=== PATIENT | male | born 1975 | race African-American/Black ===

== ENCOUNTER 2016-09-02 11:39 | Observation (INO) | payer SELFPAY ==
[~2016-09-02] VITALS: Ht 177.8 cm; Wt 90.0 kg
[2016-09-02 11:50] VITALS: BP 146/76; PULSE 97; RESP 16; TEMP 98.2; O2SAT 98
--- NOTE | 2016-09-02 12:09 | PD ---
HPI Chief Complaint: GI Complaint Time Seen by Provider: 12:08 Travel History International Travel<30 days: No Contact w/Intl Traveler<30days: No Traveled to known affect area: No History of Present Illness HPI 40 YO male presents to the ED for evaluation of Allergies-Medications (Allergen,Severity, Reaction): Coded Allergies: No Known Allergies (Unverified , 09/02/16) Reported Meds & Prescriptions Reported Meds & Active Scripts Active No Active Prescriptions or Reported Medications Data Data Last Documented VS Vital Signs Date Time Temp Pulse Resp B/P Pulse Ox O2 Delivery O2 Flow Rate FiO2 09/02/16 12:53 73 15 119/73 100 Room Air 09/02/16 11:50 98.2 MDM Scripts No Active Prescriptions or Reported Meds Marivel Castillo Sep 02, 2016 12:09
[2016-09-02 12:53] VITALS: BP 119/73; PULSE 73; RESP 15; O2SAT 100
[2016-09-02] MEDS ORDERED: SODIUM CHLOR 0.9% 1000 ML INJ 1,000 ML IV SCH (13:18)
--- NOTE | 2016-09-02 13:29 | PD ---
HPI Chief Complaint: GI Complaint Time Seen by Provider: 13:18 Travel History International Travel<30 days: No Contact w/Intl Traveler<30days: No Traveled to known affect area: No History of Present Illness HPI 40-year-old male with history of alcohol use, presents to the ER today for 1 day history of black stools, blood in the stools when he went to the bathroom today. He reports lightheadedness. He denies any chest pains, shortness of breath, vomiting, or any other symptoms. Modifying Factors: None Associated Signs & Symptoms: Blood in the stools, black stools Risk Factors: None PFSH Past Medical History Medical History: Denies Significant Hx Diminished Hearing: No Influenza Vaccination: Yes Past Surgical History Surgical History: No Previous Surgery Social History Alcohol Use: Yes (daily 2 liquor drinks) Tobacco Use: No Substance Use: No Allergies-Medications (Allergen,Severity, Reaction): Coded Allergies: No Known Allergies (Unverified , 09/02/16) Reported Meds & Prescriptions Reported Meds & Active Scripts Active No Active Prescriptions or Reported Medications Review of Systems Except as stated in HPI: all other systems reviewed are Neg Physical Exam Narrative GENERAL: Well-developed young -[place] male patient currently in mild distress. Awake and oriented 3. SKIN: Focused skin assessment warm/dry. HEAD: Atraumatic. Normocephalic. EYES: Pupils equal and round. No scleral icterus. No injection or drainage. ENT: No nasal bleeding or discharge. Mucous membranes pink and moist. NECK: Trachea midline. No JVD. CARDIOVASCULAR: Regular rate and rhythm. No murmur appreciated. RESPIRATORY: No accessory muscle use. Clear to auscultation. Breath sounds equal bilaterally. GASTROINTESTINAL: Abdomen soft, non-tender, nondistended. Hepatic and splenic margins not palpable. RECTAL EXAM: No masses or tenderness, stool is dark, Hemoccult-positive. MUSCULOSKELETAL: No obvious deformities. No clubbing. No cyanosis. No edema. NEUROLOGICAL: Awake and alert. No obvious cranial nerve deficits. Motor grossly within normal limits. Normal speech. PSYCHIATRIC: Appropriate mood and affect; insight and judgment normal. Data Data Last Documented VS Vital Signs Date Time Temp Pulse Resp B/P Pulse Ox O2 Delivery O2 Flow Rate FiO2 09/02/16 14:19 100 Room Air 09/02/16 12:53 73 15 119/73 09/02/16 11:50 98.2 Orders Complete Blood Count With Diff (09/02/16 13:18) Comprehensive Metabolic Panel (09/02/16 13:18) Lipase (09/02/16 13:18) Prothrombin Time / Inr (Pt) (09/02/16 13:18) Act Partial Throm Time (Ptt) (09/02/16 13:18) Type And Screen (09/02/16 13:18) Ecg Monitoring (09/02/16 13:18) Iv Access Insert/Monitor (09/02/16 13:18) Oximetry (09/02/16 13:18) Pantoprazole Inj (Protonix Inj) (09/02/16 13:30) Sodium Chlor 0.9% 1000 Ml Inj (Ns 1000 M (09/02/16 13:18) Sodium Chloride 0.9% Flush (Ns Flush) (09/02/16 13:30) Admit Order (Ed Use Only) (09/02/16 14:18) Labs Laboratory Tests Test 09/02/16 13:27 White Blood Count 10.3 TH/MM3 Red Blood Count 4.32 MIL/MM3 Hemoglobin 14.0 GM/DL Hematocrit 40.3 % Mean Corpuscular Volume 93.5 FL Mean Corpuscular Hemoglobin 32.3 PG Mean Corpuscular Hemoglobin 34.6 % Concent Red Cell Distribution Width 13.4 % Platelet Count 241 TH/MM3 Mean Platelet Volume 8.2 FL Neutrophils (%) (Auto) 79.5 % Lymphocytes (%) (Auto) 14.2 % Monocytes (%) (Auto) 5.8 % Eosinophils (%) (Auto) 0.2 % Basophils (%) (Auto) 0.3 % Neutrophils # (Auto) 8.2 TH/MM3 Lymphocytes # (Auto) 1.5 TH/MM3 Monocytes # (Auto) 0.6 TH/MM3 Eosinophils # (Auto) 0.0 TH/MM3 Basophils # (Auto) 0.0 TH/MM3 CBC Comment DIFF FINAL Differential Comment Prothrombin Time 11.5 SEC Prothromb Time International 1.0 RATIO Ratio Activated Partial 27.3 SEC Thromboplast Time Sodium Level 138 MEQ/L Potassium Level 4.3 MEQ/L Chloride Level 104 MEQ/L Carbon Dioxide Level 27.9 MEQ/L Anion Gap 6 MEQ/L Blood Urea Nitrogen 25 MG/DL Creatinine 1.19 MG/DL Estimat Glomerular Filtration 82 ML/MIN Rate Random Glucose 84 MG/DL Calcium Level 8.9 MG/DL Total Bilirubin 0.4 MG/DL Aspartate Amino Transf 32 U/L (AST/SGOT) Alanine Aminotransferase 32 U/L (ALT/SGPT) Alkaline Phosphatase 83 U/L Total Protein 7.4 GM/DL Albumin 3.7 GM/DL Lipase 129 U/L Blood Type A POSITIVE Antibody Screen NEGATIVE Blood Bank Comment MDM Medical Decision Making Medical Screen Exam Complete: Yes Emergency Medical Condition: Yes Medical Record Reviewed: Yes Interpretation(s) Laboratory Tests Test 09/02/16 13:27 Red Blood Count 4.32 MIL/MM3 (4.50-5.90) Neutrophils (%) (Auto) 79.5 % (16.0-70.0) Neutrophils # (Auto) 8.2 TH/MM3 (1.8-7.7) Blood Urea Nitrogen 25 MG/DL (7-18) Estimat Glomerular Filtration 82 ML/MIN (>89) Rate Differential Diagnosis GI bleeding and versus hemorrhoids versus anemia Narrative Course Lab work shows a stable H&H. Rectal exam shows significant melena. Patient was given IV fluids, Protonix, and case was discussed with family practice resident service for admission for further treatment. HemaPrompt Point of Care Internal Pos. & Neg. Controls: Passed Fecal Specimen Occult Blood: Positive Diagnosis Primary Impression: GI bleed Admitting Information Admitting Physician Requests: Admit Scripts No Active Prescriptions or Reported Meds Nereida Mueller MD Sep 02, 2016 13:29
[2016-09-02] MEDS ORDERED: PANTOPRAZOLE SODIUM 40 MG VIAL IVP ONE (13:30)
[2016-09-02] MEDS ORDERED: SODIUM CHLORIDE 0.9% FLUSH 10 ML FLUSH IVF PRN (13:30)
[2016-09-02 13:44] LABS: AUTOMATED NEUTROPHIL # 8.2 TH/MM3 (1.8-7.7); BASOPHIL % 0.3 % (0.0-2.0); EOSINOPHIL % 0.2 % (0.0-4.0); HEMATOCRIT 40.3 % (39.0-51.0); HEMO FLAGS DIFF FINAL; LYMPH % 14.2 % (9.0-44.0); LYMPHOCYTE # 1.5 TH/MM3 (1.0-4.8); MEAN CELL VOLUME 93.5 FL (80.0-100.0); MEAN CORPUSCULAR HEMOGLOBIN 32.3 PG (27.0-34.0); MEAN CORPUSCULAR HGB CONC 34.6 % (32.0-36.0); MONO % 5.8 % (0.0-8.0); NEUT % 79.5 % (16.0-70.0); PLATELET COUNT 241 TH/MM3 (150-450); RED BLOOD COUNT 4.32 MIL/MM3 (4.50-5.90); RED CELL DISTRIBUTION WIDTH 13.4 % (11.6-17.2); WHITE BLOOD COUNT 10.3 TH/MM3 (4.0-11.0)
[2016-09-02 13:54] LABS: APTT (PATIENT) 27.3 SEC (24.3-30.1); PROTHROMBIN TIME - PATIENT 11.5 SEC (9.8-11.6)
[2016-09-02 13:58] LABS: ALT (GPT) 32 U/L (12-78); ANION GAP 6 MEQ/L (5-15); AST (GOT) 32 U/L (15-37); BICARBONATE 27.9 MEQ/L (21.0-32.0); BLOOD UREA NITROGEN 25 MG/DL (7-18); CHLORIDE 104 MEQ/L (98-107); GLOMERULAR FILTRATION RATE 82 ML/MIN (>89); POTASSIUM 4.3 MEQ/L (3.5-5.1); SODIUM (NA) 138 MEQ/L (136-145)
[2016-09-02 14:01] LABS: ALKALINE PHOSPHATASE 83 U/L (45-117); TOTAL BILIRUBIN ADULT 0.4 MG/DL (0.2-1.0)
[2016-09-02 14:19] VITALS: O2SAT 100
--- NOTE | 2016-09-02 14:43 | HHI.HP ---
[facility] Service Family Medicine Primary Care Physician No Primary Care Physician Admission Diagnosis GI bleed Diagnoses: International Travel<30 Days: No Contact w/Intl Traveler<30days: No Known Affected Area: No History of Present Illness 40 year old male presenting with possible upper GI bleed. He reports with two episodes today of black stools. He shows us a picture showing significant black liquid stools filling the toilet bowl. He uses Goody Powder occasionally and also drinks two glasses of liquor per day. He has epigastric discomfort starting today. He has some lightheadedness with standing. No chest pain, shortness of breath, or vomiting. He does have some nausea. (Quentin Hernandez MD R2) Review of Systems Constitutional: COMPLAINS OF: Dizziness, DENIES: Fatigue, Chills Endocrine: DENIES: Polydipsia, Polyuria Eyes: DENIES: Blurred vision, Diplopia Ears, nose, mouth, throat: DENIES: Throat pain, Running Nose Respiratory: DENIES: Cough, Shortness of breath Cardiovascular: DENIES: Chest pain, Dyspnea on Exertion, Lower Extremity Edema , Orthopnea Gastrointestinal: COMPLAINS OF: Black stools, Bloody stools, DENIES: Abdominal pain, Constipation, Diarrhea, Nausea Genitourinary: DENIES: Urgency, Dysuria Musculoskeletal: DENIES: Joint pain, Muscle aches, Joint Swelling, Neck pain Integumentary: DENIES: Rash Hematologic/lymphatic: DENIES: Bruising Neurologic: DENIES: Headache Psychiatric: DENIES: Anxiety, Confusion, Depression (Quentin Hernandez MD R2) Past Family Social History Past Medical History None Past Surgical History None Reported Medications Reported Meds & Active Scripts Active No Active Prescriptions or Reported Medications (Quentin Hernandez MD R2) Allergies: Coded Allergies: No Known Allergies (Unverified , 09/02/16) Active Ordered Medications Inpatient Medications Ondansetron HCl (Zofran Inj) 4 mg Q6H PRN IV NAUSEA OR VOMITING; Start at 15:00 Pantoprazole Sodium (Protonix Inj) 40 mg BID IV ; Start 09/02/16 at 21:00 Senna/Docusate Sodium 1 tab 1 tab BID PRN PO CONSTIPATION; Start 09/02/16 at 15 :00 Sodium Chloride (NS 1000 ml Inj) 1,000 ml @ 125 mls/hr Q8H IV Last administered on 09/02/16t 15:03; Start 09/02/16 at 14:25 Sodium Chloride (NS Flush) 2 ml UNSCH PRN IVF FLUSH AFTER USING IV ACCESS; Start 09/02/16 at 13:30 Family History Mom: diabetes, hypertension Father: uncertain Siblings: healthy Social History Smoked a pack per week for 30 years, quit a month ago Drinks "2 cups" of liquor daily Used THC in the past, no history of IV drug use Lives with brother Not working (David,Quentin Michaels MD R2) Physical Exam Vital Signs Vital Signs Date Time Temp Pulse Resp B/P Pulse Ox O2 Delivery O2 Flow Rate FiO2 09/02/16 14:19 100 Room Air 09/02/16 12:53 73 15 119/73 100 Room Air 09/02/16 11:50 98.2 97 16 146/76 98 Physical Exam GENERAL: No distress, resting in bed, comfortable SKIN: No rashes, ecchymoses or lesions. HEAD: Atraumatic. Normocephalic. No temporal or scalp tenderness. EYES: Pupils equal round and reactive. Extraocular motions intact. No scleral icterus. No pale conjunctiva. No injection or drainage. ENT: Nose without bleeding, purulent drainage or septal hematoma. Throat without erythema, tonsillar hypertrophy or exudate. Uvula midline. Airway patent. NECK: Trachea midline. No JVD or lymphadenopathy. Supple, nontender, no meningeal signs. CARDIOVASCULAR: Regular rate and rhythm without murmurs, gallops, or rubs. RESPIRATORY: Clear to auscultation. Breath sounds equal bilaterally. No wheezes , rales, or rhonchi. GASTROINTESTINAL: Abdomen soft, non-tender, nondistended. No hepato-splenomegaly , or palpable masses. No guarding. MUSCULOSKELETAL: Extremities without clubbing, cyanosis, or edema. No joint tenderness, effusion, or edema noted. No calf tenderness. Negative Homans sign bilaterally. NEUROLOGICAL: Awake and alert. Cranial nerves II through XII intact. Motor and sensory grossly within normal limits. Five out of 5 muscle strength in all muscle groups. Normal speech. Laboratory Laboratory Tests Test 09/02/16 13:27 White Blood Count 10.3 Red Blood Count 4.32 Hemoglobin 14.0 Hematocrit 40.3 Mean Corpuscular Volume 93.5 Mean Corpuscular Hemoglobin 32.3 Mean Corpuscular Hemoglobin 34.6 Concent Red Cell Distribution Width 13.4 Platelet Count 241 Mean Platelet Volume 8.2 Neutrophils (%) (Auto) 79.5 Lymphocytes (%) (Auto) 14.2 Monocytes (%) (Auto) 5.8 Eosinophils (%) (Auto) 0.2 Basophils (%) (Auto) 0.3 Neutrophils # (Auto) 8.2 Lymphocytes # (Auto) 1.5 Monocytes # (Auto) 0.6 Eosinophils # (Auto) 0.0 Basophils # (Auto) 0.0 CBC Comment DIFF FINAL Differential Comment Prothrombin Time 11.5 Prothromb Time International 1.0 Ratio Activated Partial 27.3 Thromboplast Time Sodium Level 138 Potassium Level 4.3 Chloride Level 104 Carbon Dioxide Level 27.9 Anion Gap 6 Blood Urea Nitrogen 25 Creatinine 1.19 Estimat Glomerular Filtration 82 Rate Random Glucose 84 Calcium Level 8.9 Total Bilirubin 0.4 Aspartate Amino Transf 32 (AST/SGOT) Alanine Aminotransferase 32 (ALT/SGPT) Alkaline Phosphatase 83 Total Protein 7.4 Albumin 3.7 Lipase 129 Blood Type A POSITIVE Antibody Screen NEGATIVE Blood Bank Comment (Quentin Hernandez MD R2) Result Diagram: 09/02/16 1327 09/02/16 1327 Septic Shock Reassessment Heart: Regular rate and rhythm Lungs: Clear Skin: Warm Capillary Refill: <2 seconds (Quentin Hernandez MD R2) Assessment and Plan Assessment and Plan 40 year old male with possible upper GI bleed Code Status FULL CODE Discussed Condition With Seen and discussed with Dr. Tobar, Dr. Young (Quentin Hernandez MD R2) Attending Attestation Patient seen and examined. Case reviewed and discussed with the resident team. Agree with plan of care as discussed with me and documented in the resident note. (Dorinda Young MD) Problem List: (1) Upper GI bleed Status: Acute Plan: Black stool with Hemoccult positive, hemodynamically stable, hgb 14. - Serial H&H's, current normal - Consult gastroenterology - Likely EGD/colonoscopy - IVF at maintenance - Pantoprazole IV 40 mg bid - Regular vital signs (2) Alcohol use Status: Chronic Plan: No history of alcohol withdrawal or seizures - [facility] protocol - MV, thiamine, folic acid (3) Nutrition, metabolism, and development symptoms Status: Acute Plan: IVF with NS at 125 mls/hr, received 1L bolus in ED Electrolytes normal NPO in case of EGD/colonoscopy (4) Contraindication to anticoagulation therapy Status: Acute Plan: Acute upper GI bleed (Quentin Hernandez MD R2) Quentin Hernandez MD R2 Sep 02, 2016 14:43 Dorinda Young MD Sep 03, 2016 11:41
[2016-09-02] MEDS ORDERED: ONDANSETRON HCL 4 MG/2 ML VIAL IV PRN (15:00)
[2016-09-02] MEDS ORDERED: DOCUSATE SODIUM 50 MG/SENNA 8.6 MG TAB PO PRN (15:00)
[2016-09-02] MEDS: SODIUM CHLOR 0.9% 1000 ML INJ 1,000 ML IV SCH ×2 (15:03→21:00)
[2016-09-02] MEDS ORDERED: LORazepam 1 MG TAB PO PRN (15:45)
[2016-09-02] MEDS ORDERED: FLUMAZENIL 0.5 MG/5 ML VIAL IV PUSH PRN (15:45)
[2016-09-02] MEDS ORDERED: LORazepam 2 MG/ML VIAL IV PUSH PRN ×2 (15:45)
[2016-09-02] MEDS ORDERED: LORazepam 2 MG TAB PO PRN (15:45)
[2016-09-02] MEDS ORDERED: HALOPERIDOL LACTATE 5 MG/ML AMP IM PRN (15:45)
--- NOTE | 2016-09-02 15:45 | HHI.FPPN ---
Subjective Remarks Patient seen, examined and discussed with the medicine team. This is a 40 year-old -Citizen Of [place] male who this morning had 2 liquid black stools. He showed us a very convincing picture, and his stool was Hemoccult positive in the emergency department. He has no other symptoms associated with this other than feeling in the epigastrium as though he drank too much liquid. He's had no nausea or vomiting, states he is hungry. He has felt perhaps some slight lightheadedness. He's had no previous similar problem. He takes over- the-counter BC powders and drinks 2 cups of liquor most days. History of smoking tobacco until 1 month ago, smoked for approximately 30 years. He used marijuana in the past, no IV drugs. Please see history and physical for additional historical details including past , family and social history and review of systems. He lives with his brother, is unemployed. His mom has diabetes and hypertension, he is uncertain about his father's health. Objective Vitals Vital Signs Date Time Temp Pulse Resp B/P Pulse Ox O2 Delivery O2 Flow Rate FiO2 09/02/16 14:19 100 Room Air 09/02/16 12:53 73 15 119/73 100 Room Air 09/02/16 11:50 98.2 97 16 146/76 98 Result Diagram: 09/02/16 1327 09/02/16 1327 Other Results Laboratory Tests Test 09/02/16 13:27 Red Blood Count 4.32 MIL/MM3 Neutrophils (%) (Auto) 79.5 % Neutrophils # (Auto) 8.2 TH/MM3 Blood Urea Nitrogen 25 MG/DL Estimat Glomerular Filtration 82 ML/MIN Rate Objective Remarks O. CONSTITUTIONAL/GEN: normally nourished, in NAD. EYES: conjunctiva normal, PERRLA, EOMI. ENT: Mouth and pharynx normal. Mucous membranes moist NECK: Supple LUNGS: clear A-P, respiratory effort is normal. CARDIOVASCULAR: RR without murmur or gallop. No significant edema. No tachycardia. Good capillary refill. GI/ABD: soft without masses, without organomegaly. Bowel sounds positive, vague tenderness in the epigastrium NEURO: No focal deficits. SKIN: color normal, no rashes noted. Palm are creases normal. HEME/LYMPH: no bruising, petechia or significant adenopathy MUSC: back is normal in appearance. Extremities are normal in appearance. PSYCH/MENTAL STATUS: Alert and oriented x 3. A/P Assessment and Plan 40 year old male with possible upper GI bleed Attending Attestation Patient seen and examined. Case reviewed and discussed with the resident team. Agree with plan of care as discussed with me and documented in the resident note. Problem List: (1) Upper GI bleed Status: Acute Plan: Black stool with Hemoccult positive, hemodynamically stable, hgb 14. - Serial H&H's, current normal - Consult gastroenterology - Likely EGD/colonoscopy - IVF at maintenance - Pantoprazole IV 40 mg bid - Regular vital signs (2) Alcohol use Status: Chronic Plan: No history of alcohol withdrawal or seizures - [facility] protocol - MV, thiamine, folic acid (3) Nutrition, metabolism, and development symptoms Status: Acute Plan: IVF with NS at 125 mls/hr, received 1L bolus in ED Electrolytes normal NPO in case of EGD/colonoscopy (4) Contraindication to anticoagulation therapy Status: Acute Plan: Acute upper GI bleed Dorinda Young MD Sep 02, 2016 15:45
[2016-09-02] MEDS: THIAMINE HCL 100 MG TAB PO SCH (16:04)
[2016-09-02 16:32] VITALS: BP 123/60; PULSE 60; RESP 20; TEMP 98; O2SAT 96
[2016-09-02] MEDS: MULTIVITAMINS/MINERALS THERAPEUTIC TAB PO SCH (17:42)
[2016-09-02 20:06] VITALS: BP 121/67; PULSE 66; RESP 21; TEMP 98.2; O2SAT 98
--- NOTE | 2016-09-02 20:26 | PD.CONS ---
HPI History of Present Illness This is a 40 year old male who apparently earlier today had 2 black bowel movements which concerned him and brought him into the emergency room he reports being somewhat lightheaded and dizzy but denies any abdominal pain denies any nausea or vomiting the patient tells me for the past week he's had some mild indigestion and he has used Pepto-Bismol earlier today trying to calm his indigestion the patient also reports having used BC powder but this has been rarely used and he also admits to regular alcohol intake but otherwise he' s been in good health and has no complaints PFSH Past Medical History None Past Surgical History None Coded Allergies: No Known Allergies (Unverified , 09/02/16) Medications BC powder on occasion Family History Noncontributory Social History Patient admits to drinking alcohol he has used THC but denies any IV drug use or smoking Review of Systems ROS Review of systems Patient denies any headache blurry vision, but he reports some lightheadedness denies any chest pain shortness of breath cough fever chills, Denies any palpitations or fatigue denies any polyuria dysuria hematuria, denies any numbness tingling or weakness, denies any skin rash pruritus or jaundice, denies any easy bruising or bleeding tendency, denies any recent change in mood GI Exam Vitals I&O Vital Signs Date Time Temp Pulse Resp B/P Pulse Ox O2 Delivery O2 Flow Rate FiO2 09/02/16 20:06 98.2 66 21 121/67 98 09/02/16 16:32 98.0 60 20 123/60 96 09/02/16 14:19 100 Room Air 09/02/16 12:53 73 15 119/73 100 Room Air 09/02/16 11:50 98.2 97 16 146/76 98 Laboratory Test 09/02/16 13:27 White Blood Count 10.3 TH/MM3 Red Blood Count 4.32 MIL/MM3 Hemoglobin 14.0 GM/DL Hematocrit 40.3 % Mean Corpuscular Volume 93.5 FL Mean Corpuscular Hemoglobin 32.3 PG Mean Corpuscular Hemoglobin 34.6 % Concent Red Cell Distribution Width 13.4 % Platelet Count 241 TH/MM3 Mean Platelet Volume 8.2 FL Neutrophils (%) (Auto) 79.5 % Lymphocytes (%) (Auto) 14.2 % Monocytes (%) (Auto) 5.8 % Eosinophils (%) (Auto) 0.2 % Basophils (%) (Auto) 0.3 % Neutrophils # (Auto) 8.2 TH/MM3 Lymphocytes # (Auto) 1.5 TH/MM3 Monocytes # (Auto) 0.6 TH/MM3 Eosinophils # (Auto) 0.0 TH/MM3 Basophils # (Auto) 0.0 TH/MM3 CBC Comment DIFF FINAL Differential Comment Prothrombin Time 11.5 SEC Prothromb Time International 1.0 RATIO Ratio Activated Partial 27.3 SEC Thromboplast Time Sodium Level 138 MEQ/L Potassium Level 4.3 MEQ/L Chloride Level 104 MEQ/L Carbon Dioxide Level 27.9 MEQ/L Anion Gap 6 MEQ/L Blood Urea Nitrogen 25 MG/DL Creatinine 1.19 MG/DL Estimat Glomerular Filtration 82 ML/MIN Rate Random Glucose 84 MG/DL Calcium Level 8.9 MG/DL Total Bilirubin 0.4 MG/DL Aspartate Amino Transf 32 U/L (AST/SGOT) Alanine Aminotransferase 32 U/L (ALT/SGPT) Alkaline Phosphatase 83 U/L Total Protein 7.4 GM/DL Albumin 3.7 GM/DL Lipase 129 U/L Blood Type A POSITIVE Antibody Screen NEGATIVE Blood Bank Comment Physical Examination HEENT: Pupils round and reactive to light; normocephalic; atraumatic; no jaundice. Throat is clear. NECK: Neck is supple, no JVD, no lymphadenopathy. CHEST: Chest is clear to auscultation and percussion. CARDIAC: Regular rate and rhythm with no murmur gallop or rubs. ABDOMEN: Soft, nondistended, nontender; no hepatosplenomegaly; bowel sounds are present in all four quadrants. EXTREMITIES: No clubbing, cyanosis, or edema. SKIN: Normal; no rash; no jaundice. HOSPITAL LABORATORY TECHNICIAN: No focal deficits; alert and oriented times three. Assessment and Plan Plan Melanic stools possibly secondary to Pepto-Bismol but also patient has guaiac- positive stools At this point will proceed with an upper endoscopy tomorrow Continue with current supportive care Monitor labs and transfuse as needed Further recommendations shall depend on the findings Romeo Milner MD Sep 02, 2016 20:26
[2016-09-02] MEDS: PANTOPRAZOLE SODIUM 40 MG VIAL IV SCH (21:00)
[2016-09-02 21:51] LABS: HEMATOCRIT 35.9 % (39.0-51.0); REVIEW FLAG FINAL
[2016-09-02 22:23] VITALS: PULSE 71
[2016-09-03 01:56] LABS: AUTOMATED NEUTROPHIL # 3.7 TH/MM3 (1.8-7.7); BASOPHIL % 0.6 % (0.0-2.0); EOSINOPHIL # 0.1 TH/MM3 (0-0.4); EOSINOPHIL % 0.9 % (0.0-4.0); HEMATOCRIT 34.2 % (39.0-51.0); HEMO FLAGS DIFF FINAL; LYMPH % 33.7 % (9.0-44.0); LYMPHOCYTE # 2.2 TH/MM3 (1.0-4.8); MEAN CELL VOLUME 93.2 FL (80.0-100.0); MEAN CORPUSCULAR HEMOGLOBIN 32.1 PG (27.0-34.0); MEAN CORPUSCULAR HGB CONC 34.5 % (32.0-36.0); MONO % 7.8 % (0.0-8.0); PLATELET COUNT 203 TH/MM3 (150-450); RED BLOOD COUNT 3.67 MIL/MM3 (4.50-5.90); RED CELL DISTRIBUTION WIDTH 13.4 % (11.6-17.2); WHITE BLOOD COUNT 6.5 TH/MM3 (4.0-11.0)
[2016-09-03 02:28] LABS: POTASSIUM 3.9 MEQ/L (3.5-5.1)
[2016-09-03] MEDS: SODIUM CHLOR 0.9% 1000 ML INJ 1,000 ML IV SCH ×2 (05:32→13:22)
[2016-09-03 05:39] VITALS: BP 112/64; PULSE 55; RESP 22; TEMP 97.8; O2SAT 100
[2016-09-03 08:10] VITALS: BP 117/64; PULSE 59; RESP 18; TEMP 97.7; O2SAT 99
[2016-09-03] MEDS ORDERED: FOLIC ACID 1 MG TAB PO SCH (09:00)
[2016-09-03 10:42] VITALS: BP 117/64; PULSE 59; RESP 18; TEMP 97.7; O2SAT 99
[2016-09-03] MEDS ORDERED: PROPOFOL 200 MG/20 ML AMP IV PUSH ONE (11:12)
--- NOTE | 2016-09-03 11:19 | GIPROC ---
[facility] [address] [facility]. [facility], [id number] EGD PROCEDURE REPORT EXAM DATE: 09/03/2016 PATIENT NAME: Terry Davis MR #: [id number] BIRTHDATE: 1975 ATTENDING: Yosef Prince MD ORDER #: [id number] DIRECTOR CONSUMER AFFAIRS: Cynthia Mcintyre and Alverto Fang STATUS: inpatient INDICATIONS: The patient is a 40 yr old male here for an EGD due to melena PROCEDURE PERFORMED: EGD w/ biopsy MEDICATIONS: None and Per Anesthesia. TOPICAL ANESTHETIC: CONSENT: The patient understands the risks and benefits of the procedure and understands that these risks include, but are not limited to: sedation, allergic reaction, infection, perforation and/or bleeding. Alternative means of evaluation and treatment include, among others: physical exam, x-rays, and/or surgical intervention. The patient elects to proceed with this endoscopic procedure. medical equipment was checked for proper function. Hand hygiene and appropriate measures for infection prevention was taken. After the risks, benefits and alternatives of the procedure were thoroughly explained, Informed consent was verified, confirmed and timeout was successfully executed by the treatment team. The patient was anesthetized with topical anesthesia and the Pentax [id number] endoscope was introduced through the mouth and advanced to the second portion of the duodenum. Retroflexed views revealed no abnormalities The gastroscope was then slowly withdrawn and removed. ESOPHAGUS: There was LA Class A esophagitis noted. A biopsy was performed using cold forceps. Sample sent for histology. STOMACH: The mucosa of the stomach appeared normal. DUODENUM: Two non-bleeding, irregular shaped, shallow and clean-based ulcers ranging between 3-7mm in size were found in the 1st part of the duodenum. Biopsies were taken at edge of the ulcers. ADVERSE EVENTS: There were no complications. IMPRESSIONS: 1. There was LA Class A esophagitis noted; biopsy was performed 2. The mucosa of the stomach appeared normal 3. Two ulcers ranging between 3-7mm in size were found in the 1st part of the duodenum; biopsies were taken 4. Retroflexed views revealed no abnormalities RECOMMENDATIONS: 1. Await biopsy results. Biopsy results will not be ready for 7-10 days. If you don't hear from us in two weeks, call our office for biopsy results. 2. Anti-reflux regimen 3. Continue PPI 4. Avoid NSAIDS 5. Follow-up: GI clinic 2 week(s) 6. Advance diet as tolerated, gi fu as needed, inpt. PATIENT CONDITION: stable DISPOSITION: Inpatient REPEAT EXAM: Return 1 year EGD pending biopsy results Yosef Prince MD eSigned: Yosef Prince MD 09/03/2016 11:19 AM cc: PATIENT NAME: Terry Davis MR#: [id number]
[2016-09-03 11:40] VITALS: BP 93/52; PULSE 59; RESP 18; TEMP 98; O2SAT 99
--- NOTE | 2016-09-03 11:56 | HHI.FPPN ---
Subjective Remarks Patient seen and examined this morning by medical team prior to endoscopy. No acute events overnight with vital signs stable. Patient reports some mild nausea with "a stomachache, "but does not endorse any abdominal pain. He continues to pass gas and had one bowel movement overnight that was black in nature consistent with prior BM's. Otherwise he has no complaints and denies any fevers, chills, shortness of breath, chest pain, NVD, or calf tenderness. ( Nikolas Tobar MD R1) Objective Vitals Vital Signs Date Time Temp Pulse Resp B/P Pulse Ox O2 Delivery O2 Flow Rate FiO2 09/03/16 11:40 98.0 59 18 93/52 99 09/03/16 11:21 68 18 99/48 100 09/03/16 11:11 74 18 99/46 100 09/03/16 11:01 97.8 77 18 99/49 100 09/03/16 10:42 97.7 59 18 117/64 99 09/03/16 08:10 97.7 59 18 117/64 99 09/03/16 05:39 97.8 55 22 112/64 100 09/02/16 22:23 71 09/02/16 20:06 98.2 66 21 121/67 98 09/02/16 19:55 21 09/02/16 16:32 98.0 60 20 123/60 96 09/02/16 14:19 100 Room Air 09/02/16 12:53 73 15 119/73 100 Room Air 09/02/16 11:50 98.2 97 16 146/76 98 I/O 09/02/16 09/02/16 09/02/16 09/03/16 09/03/16 09/03/16 07:00 15:00 23:00 07:00 15:00 23:00 Intake Total 200 ml Balance 200 ml Intake Other 200 ml # Voids 3 (Nikolas Tobar MD R1) Result Diagram: 09/03/1613309/03/16133 Objective Remarks CONSTITUTIONAL/GEN: Well-nourished, well-developed 40-year-old male lying in bed in no acute distress. HEENT: Atraumatic, normocephalic with EOMI. MMM. No JVD or LAD appreciated. No rhinorrhea. LUNGS: Clear to auscultation bilaterally with no CRW. CARDIOVASCULAR: Regular rate and rhythm with no MGR. GI/ABD: Soft, nondistended with positive bowel sounds in all 4 quadrants. No masses or hepatosplenomegaly appreciated. Mild tenderness to moderate palpation at the mid epigastrium. No rebound tenderness or guarding. Negative Luevano sign. NEURO: No focal deficits. Normal speech and interaction with examination. EXT: No edema or cyanosis appreciated. No calf tenderness. SKIN: Warm and dry. No rashes. PSYCH/MENTAL STATUS: Alert and oriented x 3. (Nikolas Tobar MD R1) A/P Assessment and Plan Mr. Davis is a [id number] male presenting with black stools and abdominal discomfort likely secondary to GI bleed. Discharge Planning Pending GI recommendations post-endoscopy. (Nikolas Tobar MD R1) Attending Attestation Patient seen and examined. Case reviewed and discussed with the resident team. Agree with plan of care as discussed with me and documented in the resident note. (Dorinda Young MD) Problem List: (1) Upper GI bleed Status: Acute Plan: Black stool with Hemoccult positive, hemodynamically stable, hgb 14. - Serial H&H's: Within normal limits - Consult gastroenterology -Planned for upper endoscopy this morning, nothing by mouth since midnight - IVF at maintenance - Pantoprazole IV 40 mg bid - Regular vital signs (2) Alcohol use Status: Chronic Plan: No history of alcohol withdrawal or seizures - [facility] protocol - MV, thiamine, folic acid (3) Nutrition, metabolism, and development symptoms Status: Acute Plan: IVF with NS at 125 mls/hr, received 1L bolus in ED Electrolytes normal NPO for upper endoscopy (4) Contraindication to anticoagulation therapy Status: Acute Plan: Acute upper GI bleed (Nikolas Tobar MD R1) Nikolas Tobar MD R1 Sep 03, 2016 11:56 Dorinda Young MD Sep 03, 2016 13:47
[2016-09-03] MEDS: PANTOPRAZOLE SODIUM 40 MG VIAL IV SCH (13:21)
[2016-09-03] MEDS: THIAMINE HCL 100 MG TAB PO SCH (13:21)
[2016-09-03] MEDS: MULTIVITAMINS/MINERALS THERAPEUTIC TAB PO SCH (13:21)
[2016-09-03] MEDS ORDERED: PROT40TA PO (15:13)
--- NOTE | 2016-09-03 15:14 | HHI.DCPOC ---
Discharge Care Plan Diagnosis: (1) Upper GI bleed (2) Duodenal ulcer (3) Obregon esophagus Goals to Promote Your Health * To prevent worsening of your condition and complications * To maintain your health at the optimal level Directions to Meet Your Goals Take your medications as prescribed Follow your dietary instruction Follow activity as directed Keep your appointments as scheduled Take your immunizations and boosters as scheduled If your symptoms worsen call your PCP, if no PCP go to Urgent Care Center or Emergency Room Smoking is Dangerous to Your Health. Avoid second hand smoke Call the 24-hour hour crisis hotline for domestic abuse at Nikolas Tobar MD R1 Sep 03, 2016 15:14
== END 2016-09-03 16:34 | disposition home or self-care (01) ==
LOC: NEPC 11:39 → NEDA 14:20 → NEPGCP 16:12
PROVIDERS: ADMIT Family Medicine; ATTEND Family Medicine
PROC: 0DB58ZX Excision of Esophagus, Via Natural or Artificial Opening Endoscopic, Diagnostic (ICD-10-PCS; 2016-09-03)
PROC: 0DB98ZX Excision of Duodenum, Via Natural or Artificial Opening Endoscopic, Diagnostic (ICD-10-PCS; principal; 2016-09-03 10:45)
DX: K29.80 Duodenitis without bleeding (principal); K20.9 Esophagitis, unspecified; Z87.891 Personal history of nicotine dependence; F10.20 Alcohol dependence, uncomplicated
CPT/HCPCS: 00740; 43239; 80048; 80053; 83690; 85014; 85018; 85025; 85610; 85730; 86850; 86900; 86901; 88305; 96361; 96374; 99285; C9113; G0378; J7030